=== PATIENT | male | born 1995 | race Caucasian/White ===

== ENCOUNTER → 2016-10-07 14:22 | Emergency (ER) | payer OTHER ==
[~2016-10-07 14:22] MED LIST: Levofloxacin TAB* 500 MG PO ONE; OLANzapine TAB* 10 MG PO ONE; OLANzapine TAB* 5 MG PO ONE
[2016-10-07 15:44] LABS: Hematocrit 47 % (42-52); Hemoglobin 16.6 g/dl (14.0-18.0); Mean Corpuscular HGB Conc 35 g/dl (31-36); Mean Corpuscular Hemoglobin 32 pg (27-31); Mean Corpuscular Volume 91 fL (80-94); Mean Platelet Volume 7 um3 (7.4-10.4); Red Blood Count 5.23 10^6/ul (4.0-5.4); Red Cell Distribution Width 13 % (10.5-15); White Blood Count 5.1 10^3/ul (3.5-10.8)
[2016-10-07 15:54] LABS: Urine Bilirubin Negative (Negative); Urine Glucose Negative (Negative); Urine Nitrite Negative (Negative)
[2016-10-07 15:59] LABS: ALT 14 U/L (7-52); AST 16 U/L (13-39); Albumin 4.3 g/dL (3.2-5.2); Alkaline Phosphatase 43 U/L (34-104); Anion Gap 5 mmol/L (2-11); BUN/Creatinine Ratio 21.3 (8-20); Blood Urea Nitrogen 16 mg/dL (6-24); CO2 Carbon Dioxide 27 mmol/L (22-32); Calcium 9.6 mg/dL (8.6-10.3); Chloride 103 mmol/L (101-111); EGFR Non-African American 129.1 (>60); Globulin 3.1 g/dL (2-4); Glucose 89 mg/dL (70-100); Potassium 3.8 mmol/L (3.5-5.0); Sodium 135 mmol/L (133-145); Total Protein 7.4 g/dL (6.4-8.9)
[2016-10-07 16:04] LABS: Benzodiazepine Urine Screen None Detected (None Detect)
[2016-10-07 16:36] LABS: Acetaminophen < 15 mcg/mL; Alcohol < 10 mg/dL (<10); Salicylate < 2.50 mg/dL (<30)
[2016-10-07 16:47] LABS: TSH (Thyroid Stimulating Horm) 1.64 mcIU/mL (0.34-5.60)
[2016-10-07 16:57] VITALS: BP 125/82
--- NOTE | 2016-10-07 18:24 | ED ---
Psychiatric Complaint - HPI Summary HPI Summary: Patient presents to the ED with CC of feelings of radha starting today. He takes Prozac daily and 1 month ago was increased from 20mg to 30mg. Prior to that he was increased from 10mg to 20mg with no side effects. He notes to impulsivity, feelings of heightened awareness. Denies SI/HI. He states he has a history of impulsive thoughts, but again is adamant about never acting on those feelings. He states he just feels overly excited and is uncomfortable with those feelings. 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 Denies any other health problems. Takes no medications other than the prozac. Denies self harm or previous thoughts of SI/HI. - History Of Current Complaint Chief Complaint: EDMentalHealth Time Seen by Provider: 10/07/16 14:41 Hx Obtained From: Patient Onset/Duration: Sudden Onset Timing: Constant Severity Initially: Moderate Severity Currently: Moderate Character: Manic, Anxious Aggravating Factor(s): Other - increased medication use x 1 month ago Associated Signs And Symptoms: Positive: Negative Related History: Positive For: Prior Psychiatric Issues - Risk Factor(s) Completed Suicide Risk Factors: Male - Allergies/Home Medications Allergies/Adverse Reactions: Allergies Allergy/AdvReac Type Severity Reaction Status Date / Time No Known Allergies Allergy Verified 10/07/16 18:53 Home Medications: Home Medications FLUoxetine CAP* [PROzac CAP*] 30 mg PO DAILY 10/07/16 [History Confirmed ] PMH/Surg Hx/FS Hx/Imm Hx Previously Healthy: Yes Psychiatric History: Denies: Hx Eating Disorder, Hx of Violent Episodes Against Others - Immunization History Hx Pertussis Vaccination: No Immunizations Up to Date: Unable to Obtain/Confirm Infectious Disease History: No Infectious Disease History: Denies: Traveled Outside the [place] in Last 30 Days - Social History Occupation: Student Lives: Alone Alcohol Use: Occasionally Hx Substance Use: Yes Substance Use Type: Reports: Marijuana Hx Tobacco Use: No Smoking Status (MU): Never Smoked Tobacco Review of Systems Constitutional: Negative Eyes: Negative Cardiovascular: Negative Positive: Other - fast HR. Negative: Palpitations, Chest Pain Respiratory: Negative Positive: no symptoms reported, see HPI Musculoskeletal: Negative Skin: Negative Neurological: Negative Positive: Anxious. Negative: Depressed All Other Systems Reviewed And Are Negative: Yes Physical Exam Triage Information Reviewed: Yes Vital Signs On Initial Exam: Initial Vitals Temp Pulse Resp BP Pulse Ox 99.6 F 78 14 121/73 98 10/07/16 14:36 10/07/16 14:36 10/07/16 14:36 10/07/16 14:36 10/07/16 14:36 Vital Signs Reviewed: Yes Appearance: Positive: Well-Appearing, Well-Nourished Skin: Positive: Warm, Skin Color Reflects Adequate Perfusion Head/Face: Positive: Normal Head/Face Inspection Eyes: Positive: EOMI, JANI, Conjunctiva Clear Neck: Positive: Supple, Nontender, No Lymphadenopathy Respiratory/Lung Sounds: Positive: Clear to Auscultation, Breath Sounds Present Cardiovascular: Positive: Normal, RRR, Pulses are Symmetrical in both Upper and Lower Extremities Musculoskeletal: Positive: Strength/ROM Intact Neurological: Positive: Sensory/Motor Intact, Alert, Oriented to Person Place, Time, Speech Normal Psychiatric: Positive: Affect/Mood Appropriate, Anxious. Negative: Depressed AVPU Assessment: Alert - Tristan Coma Scale Coma Scale Total: 15 Diagnostics - Vital Signs Vital Signs Temp Pulse Resp BP Pulse Ox 10/07/16 16:56 99.1 F 67 16 125/82 98 10/07/16 16:30 99.6 F 64 20 117/70 99 10/07/16 14:36 99.6 F 78 14 121/73 98 - Laboratory Lab Results: Lab Results 10/07/16 10/07/16 10/07/16 Range/Units 14:44 14:44 15:37 WBC (3.5-10.8) 10^3/ul RBC (4.0-5.4) 10^6/ul Hgb (14.0-18.0) g/dl Hct (42-52) % MCV (80-94) fL MCH (27-31) pg MCHC (31-36) g/dl RDW (10.5-15) % Plt Count (150-450) 10^3/ul MPV (7.4-10.4) um3 Neut % (Auto) (38-83) % Lymph % (Auto) (25-47) % [place] % (Auto) (1-9) % Eos % (Auto) (0-6) % Baso % (Auto) (0-2) % Absolute Neuts (auto) (1.5-7.7) 10^3/ul Absolute Lymphs (auto) (1.0-4.8) 10^3/ul Absolute Monos (auto) (0-0.8) 10^3/ul Absolute Eos (auto) (0-0.6) 10^3/ul Absolute Basos (auto) (0-0.2) 10^3/ul Absolute Nucleated RBC 10^3/ul Nucleated RBC % Sodium 135 (133-145) mmol/L Potassium 3.8 (3.5-5.0) mmol/L Chloride 103 (101-111) mmol/L Carbon Dioxide 27 (22-32) mmol/L Anion Gap 5 (2-11) mmol/L BUN 16 (6-24) mg/dL Creatinine 0.75 (0.67-1.17) mg/dL Est GFR ( Amer) 166.0 (>60) Est GFR (Non-Af Amer) 129.1 (>60) BUN/Creatinine Ratio 21.3 H (8-20) Glucose 89 (70-100) mg/dL Calcium 9.6 (8.6-10.3) mg/dL Total Bilirubin 0.60 (0.2-1.0) mg/dL AST 16 (13-39) U/L ALT 14 (7-52) U/L Alkaline Phosphatase 43 (34-104) U/L Total Protein 7.4 (6.4-8.9) g/dL Albumin 4.3 (3.2-5.2) g/dL Globulin 3.1 (2-4) g/dL Albumin/Globulin Ratio 1.4 (1-3) TSH 1.64 (0.34-5.60) mcIU/mL Urine Color Yellow Urine Appearance Clear Urine pH 6.0 (5-9) Ur Specific [place] 1.028 (1.010-1.030) Urine Protein Negative (Negative) Urine Ketones Negative (Negative) Urine Blood Negative (Negative) Urine Nitrate Negative (Negative) Urine Bilirubin Negative (Negative) Urine Urobilinogen Negative (Negative) Ur Leukocyte Esterase Negative (Negative) Urine Glucose Negative (Negative) Salicylates < 2.50 (<30) mg/dL Urine Opiates Screen None detected (None Detect) Acetaminophen < 15 mcg/mL Ur Barbiturates Screen None detected (None Detect) Ur Phencyclidine Scrn None detected (None Detect) Ur Amphetamines Screen None detected (None Detect) U Benzodiazepines Scrn None detected (None Detect) Urine Cocaine Screen None detected (None Detect) U Cannabinoids Screen Presumptive positive H (None Detect) Serum Alcohol < 10 (<10) mg/dL 10/07/16 Range/Units 15:37 WBC 5.1 (3.5-10.8) 10^3/ul RBC 5.23 (4.0-5.4) 10^6/ul Hgb 16.6 (14.0-18.0) g/dl Hct 47 (42-52) % MCV 91 (80-94) fL MCH 32 H (27-31) pg MCHC 35 (31-36) g/dl RDW 13 (10.5-15) % Plt Count 302 (150-450) 10^3/ul MPV 7 L (7.4-10.4) um3 Neut % (Auto) 49.4 (38-83) % Lymph % (Auto) 38.3 (25-47) % [place] % (Auto) 7.7 (1-9) % Eos % (Auto) 1.1 (0-6) % Baso % (Auto) 3.5 H (0-2) % Absolute Neuts (auto) 2.5 (1.5-7.7) 10^3/ul Absolute Lymphs (auto) 2.0 (1.0-4.8) 10^3/ul Absolute Monos (auto) 0.4 (0-0.8) 10^3/ul Absolute Eos (auto) 0.1 (0-0.6) 10^3/ul Absolute Basos (auto) 0.2 (0-0.2) 10^3/ul Absolute Nucleated RBC 0.01 10^3/ul Nucleated RBC % 0.2 Sodium (133-145) mmol/L Potassium (3.5-5.0) mmol/L Chloride (101-111) mmol/L Carbon Dioxide (22-32) mmol/L Anion Gap (2-11) mmol/L BUN (6-24) mg/dL Creatinine (0.67-1.17) mg/dL Est GFR ( Amer) (>60) Est GFR (Non-Af Amer) (>60) BUN/Creatinine Ratio (8-20) Glucose (70-100) mg/dL Calcium (8.6-10.3) mg/dL Total Bilirubin (0.2-1.0) mg/dL AST (13-39) U/L ALT (7-52) U/L Alkaline Phosphatase (34-104) U/L Total Protein (6.4-8.9) g/dL Albumin (3.2-5.2) g/dL Globulin (2-4) g/dL Albumin/Globulin Ratio (1-3) TSH (0.34-5.60) mcIU/mL Urine Color Urine Appearance Urine pH (5-9) Ur Specific [place] (1.010-1.030) Urine Protein (Negative) Urine Ketones (Negative) Urine Blood (Negative) Urine Nitrate (Negative) Urine Bilirubin (Negative) Urine Urobilinogen (Negative) Ur Leukocyte Esterase (Negative) Urine Glucose (Negative) Salicylates (<30) mg/dL Urine Opiates Screen (None Detect) Acetaminophen mcg/mL Ur Barbiturates Screen (None Detect) Ur Phencyclidine Scrn (None Detect) Ur Amphetamines Screen (None Detect) U Benzodiazepines Scrn (None Detect) Urine Cocaine Screen (None Detect) U Cannabinoids Screen (None Detect) Serum Alcohol (<10) mg/dL Result Diagrams: 10/07/16 15:37 10/07/16 15:37 Lab Statement: Any lab studies that have been ordered have been reviewed, and results considered in the medical decision making process. Course/Dx - Course Course Of Treatment: Patient is cleared for MHU. Patient is evaluated by MHU and agrees to keep in observation overnight in the flex. Patient given zyprexa 10mg for relief and is prescribed 10mg as needed for insomnia. Dr. Swan ( psychiatry) suggested these parameters and will follow his direction for the patient. They will obtain more records from [place] tomorrow morning and will likely discharge at that time pending more information. - Differential Dx/Clinical Impression Differential Diagnosis/HQI/PQRI: Positive: Anxiety, Bipolar Disorder, Depression , Drug Overdose/Unintentional Provider Diagnosis: Manic behavior Discharge - Discharge Plan Condition: Stable Referrals: Non Staff,Doctor [Primary Care Provider] -
--- NOTE | 2016-10-08 14:36 | CONSULT ---
Consult Consult: Mr. North presented C/O being a bit manic. He was medically cleared on a previous shift and had a MHE. Dr. Combs felt that he was safe for D/C and he was D/C'd in stable condition with a diagnosis of medication reaction.
== END | disposition home or self-care (01) ==
LOC: ED 14:22
DX: F30.9 Manic episode, unspecified (principal)
CPT/HCPCS: 36415; 80053; 80307; 80320; 80329; 81003; 84443; 85025; 99284; A9270-GY; G0480

== ENCOUNTER 2017-04-10 15:12 | Inpatient (IN) | payer OTHER ==
--- OUTSIDE RECORDS SUMMARY | 2017-04-10 15:37 | XMS REPORT ---
:1995 External Reference #:[id number] [facility] Address [address] [address] Phone [phone] Care Team Providers Name Role Phone Lawrence Daley M.D. Care Team Information Software Application Tester Unavailable Payers Type Date Identification Numbers Payment Provider Subscriber Commercial Effective: Policy Number: [id number] [employer] 2017 PayID: [id number] [address] [place] [address] Commercial Policy Number: [id number] [employer] PayID: [id number] [address] [place] [address] Problems Date Description Provider Status Onset: 03/26/2017 Tic disorder Lawrence Daley M.D. Active Social History Type Date Description Comments ETOH Use Occasionally consumes alcohol Smoking Patient has never smoked Recreational Drug Use Denies Drug Use Allergies, Adverse Reactions, Alerts Date Description Reaction Status Severity Comments 03/17/2017 NKDA active Medications Medication Date Status Form Strength Qnty SIG Indications Ordering Provider Topiramate 03/26/ Active Tablets 25mg 60tabs 1 by mouth F95.9 Lawrence Martin twice a Carol Daley day Fluoxetine / Active Capsules 20mg 1 by mouth Unknown HCL 0000 every day Latuda / Active Tablets 20mg As Unknown 0000 directed Vital Signs Date Vital Result Comment 03/26/2017 Height 69 inches 5'9" Weight 169.00 lb Heart Rate 66 /min BP Systolic 118 mmHg BP Diastolic 80 mmHg BMI (Body Mass Index) 25.0 kg/m2 Results Description No Information Procedures Description No Information Plan of Care Future Appointment(s):05/15/2017 10:15 am - Lawrence [facility] at [facility]03/26/2017 - Lawrence Daley M.D.F95.9 Tic disorder , unspecifiedNew Medication:Topiramate 25 mgFollow up:Follow up in 6 weeks.
[2017-04-10 15:54] LABS: Urine Appearance Cloudy; Urine Blood Negative (Negative); Urine Color Yellow; Urine Ketones Negative (Negative); Urine Protein Negative (Negative); Urine Specific Gravity 1.013 (1.010-1.030); Urine Urobilinogen Negative (Negative)
[2017-04-10 16:30] LABS: ABS Basophils 0 10^3/ul (0-0.2); ABS Eosinophils 0 10^3/ul (0-0.6); ABS Lymphocytes 0.8 10^3/ul (1.0-4.8); ABS Monocytes 0.5 10^3/ul (0-0.8); ABS Neutrophils 8.8 10^3/ul (1.5-7.7); ABS Nucleated RBC 0 10^3/ul; Eosinophil % 0.1 % (0-6); Hematocrit 48 % (42-52); Hemoglobin 17.2 g/dl (14.0-18.0); Lymphocyte % 8.2 % (25-47); Mean Corpuscular HGB Conc 36 g/dl (31-36); Mean Corpuscular Hemoglobin 33 pg (27-31); Mean Corpuscular Volume 92 fL (80-94); Mean Platelet Volume 8 um3 (7.4-10.4); Nucleated Red Blood Cells % 0; Platelet Count 284 10^3/ul (150-450); Red Blood Count 5.23 10^6/ul (4.0-5.4); Red Cell Distribution Width 12 % (10.5-15); White Blood Count 10.1 10^3/ul (3.5-10.8)
[2017-04-10 16:55] LABS: EGFR Non-African American 92.6 (>60)
--- NOTE | 2017-04-11 07:23 | ED ---
I, Enedina Campa, scribed for Kenn Barreto MD on 04/10/17 at 2145 . Progress - Progress Note Progress Note: The pt is a sign out from Dr. Chan pending mental health evaluation. - Consult/PCP Time Called: 17:00 Course/Dx - Course Course Of Treatment: Pt stable thru night -- signed out to Dr Stubbs at 7am. - Diagnoses Provider Diagnoses: Elevated BP without diagnosis of hypertension - Provider Notifications Discussed Care Of Patient With: Enoc Time Discussed With Above Provider: 07:00 The documentation as recorded by the Lokesh muhammad Jennifer accurately reflects the service I personally performed and the decisions made by , Kenn Barreto MD.
--- NOTE | 2017-04-11 09:32 | PN ---
ED Flex Patient Progress Note Date of Service: 04/11/17 Subjective: This is a 21 year-old M who is pending disposition after MHE presents to Dr Romero, psychiatrist. observed secondary to depression/anxiety and suicidal thoughts. Patient states he is wondering what is taking so long however he is eating and sleeping. No other complaints. Objective: Vitals: Most recent vital signs documented below. General NAD, Alert and oriented x3. Heart: rrr at 87 bpm Lungs: CTA or with rales, rhonchi, wheezing Laboratory: Current laboratory results documented below. Assessment: pending psych dispo Plan: Pending psychiatric consultation by Dr Romero to determine disposition. will follow up daily. Vital Signs Temp Pulse Resp BP Pulse Ox 99.1 F 87 20 118/71 97 04/11/17 08:27 04/11/17 08:27 04/11/17 08:27 04/11/17 08:27 04/11/17 08:27 Lab Results - Entire Visit 04/10/17 04/10/17 04/10/17 16:15 16:15 15:33 WBC 10.1 RBC 5.23 Hgb 17.2 Hct 48 MCV 92 MCH 33 H MCHC 36 RDW 12 Plt Count 284 MPV 8 Neut % (Auto) 87.1 H Lymph % (Auto) 8.2 L [place] % (Auto) 4.5 Eos % (Auto) 0.1 Baso % (Auto) 0.1 Absolute Neuts (auto) 8.8 H Absolute Lymphs (auto) 0.8 L Absolute Monos (auto) 0.5 Absolute Eos (auto) 0 Absolute Basos (auto) 0 Absolute Nucleated RBC 0 Nucleated RBC % 0 Sodium 137 Potassium 3.9 Chloride 103 Carbon Dioxide 27 Anion Gap 7 BUN 15 Creatinine 1.00 Est GFR ( Amer) 119.1 Est GFR (Non-Af Amer) 92.6 BUN/Creatinine Ratio 15.0 Glucose 124 H Calcium 10.0 Total Bilirubin 0.50 AST 19 ALT 24 Alkaline Phosphatase 43 Total Protein 7.8 Albumin 4.8 Globulin 3.0 Albumin/Globulin Ratio 1.6 TSH 3.52 Urine Color Yellow Urine Appearance Cloudy Urine pH 7.0 Ur Specific [place] 1.013 Urine Protein Negative Urine Ketones Negative Urine Blood Negative Urine Nitrate Negative Urine Bilirubin Negative Urine Urobilinogen Negative Ur Leukocyte Esterase Negative Urine Glucose Negative Salicylates < 2.50 Urine Opiates Screen Acetaminophen < 15 Ur Barbiturates Screen Ur Phencyclidine Scrn Ur Amphetamines Screen U Benzodiazepines Scrn Urine Cocaine Screen U Cannabinoids Screen Serum Alcohol < 10 04/10/17 15:33 WBC RBC Hgb Hct MCV MCH MCHC RDW Plt Count MPV Neut % (Auto) Lymph % (Auto) [place] % (Auto) Eos % (Auto) Baso % (Auto) Absolute Neuts (auto) Absolute Lymphs (auto) Absolute Monos (auto) Absolute Eos (auto) Absolute Basos (auto) Absolute Nucleated RBC Nucleated RBC % Sodium Potassium Chloride Carbon Dioxide Anion Gap BUN Creatinine Est GFR ( Amer) Est GFR (Non-Af Amer) BUN/Creatinine Ratio Glucose Calcium Total Bilirubin AST ALT Alkaline Phosphatase Total Protein Albumin Globulin Albumin/Globulin Ratio TSH Urine Color Urine Appearance Urine pH Ur Specific [place] Urine Protein Urine Ketones Urine Blood Urine Nitrate Urine Bilirubin Urine Urobilinogen Ur Leukocyte Esterase Urine Glucose Salicylates Urine Opiates Screen None detected Acetaminophen Ur Barbiturates Screen None detected Ur Phencyclidine Scrn None detected Ur Amphetamines Screen None detected U Benzodiazepines Scrn None detected Urine Cocaine Screen None detected U Cannabinoids Screen None detected Serum Alcohol
[2017-04-11] MEDS ORDERED: Al Hydrox/Mg Hydrox/Simet LIQ* 30 ML UDC PO PRN (10:28)
[2017-04-11] MEDS ORDERED: Acetaminophen TAB* 325 MG PO PRN (10:28)
--- NOTE | 2017-04-11 12:45 | ADMNOTE ---
History - Objective HPI: Psychiatric Attending History and Physical NAME: Siva North : 1995 AGE: 21 PROVIDER: Jame Mackey DATE OF ADMISSION: 04/10/2017 JUSTIFICATION FOR ADMISSION: Patient brought to ED for evaluation of his mental status after a staff member in the [facility] department called police after having a discussion with patient during which she perceived that patient made threatening comment about a deep submergence vehicle crewmember. The staff at [facility] [employer] could not be reached for full detaiils. Patient is admitted for 24 hour supervision in order to assess whether he is danger to self or others CHIEF COMPLAINT: "I'm not here because I'm a threat but because people often don't understand or misunderstand me" HISTORY OF THE PRESENT ILLNESS: History gathered solely from patient who is judged to be an accurate historian. The history could very well change based on information gathered from [facility] staff, family members, or treatment providers. 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 patient has history of depression and Autism both diagnosed in July of 2016 when he presented to [facility] outpatient clinic for treatment of depressive symptoms (loss of interest, low self worth, lethargy). patient has no history or suicidal or homicidal ideation, intention , plan or attempt. Patient was started on Prozac in July 2016 which was titrated up to 30 mg over two month period. one month after increase to 30 mg he developed first time manic symptoms including racing thoughts, insomnia, psychomotor acceleration and anxiety. He was see in [facility] and manic symptoms remitted with a single dose of Zyprexa 10 mg. Latuda was added and titrated up to 40 mg which patient took for about 6 months. It was discontinued a month ago according to patient. patient denies recent history of manic symptoms. he does report that he has been more depressed recently and believes that his medication could be adjusted. Of note patient reports that he has always had impaired social skills, attentional difficulties, been misunderstood, had impulse control probelms, had few friends, tended to be more of a loner. He often feels misunderstood as he has tendency to say things without considering the consequences. Patient endorses being happy at [employer], intending to complete his PHD (has 4 more years), admits he has very few friends but is content with this. He does have a love interest that he considers his girlfriend and with whom he is sexually active. Patient reports that he has a 4.01 grade point average out of 4.0. he has been seeing a therapist weekly at the outpatient clinic since summer. Stressors: September 2017 he revealed depression to his mathematics advisor. Subsequently told by dept chair that he would need to find new advisor and would not receive recommendation for a rodolfo. law suit initiated by patient based on breach of rights/discrimination. Patient reports that he has been angry and felt slighted by his advisor and the chair of department but denies having any homicidal ideation expressed or unexpresssed toward anyone. He also denies ever making any statements about wanting to use gun to harm anyone. He reports that he after the discussion with chair of math occurred, he was brought to [employer] office where a counselor was arranged for him to speak with. Counselor asked him if he had HI or SI at that time to which he answered "no". 4 weeks ago, after [employer] shooting, he made comment to his counselor about being upset that people with mental illness would no longer be able to purchase weapons. He denies ever having intention or thought to buy gun. he reports that he has never touched, used, owned or tried to procure a gun and nor does he desire to. several days ago he heard from his sprinkler irrigation equipment mechanic that he had won the law suit. He reports that he went over to the math department in order to "gloat" to the service secretary about his having won. He denies that he was agitated or explosive. he does admit feeling vindicated. He also admits that he admonished the [employer] service secretary for having called a therapist to talk to him that prior September. He states that he told her that it hurt his feelings that he had been questioned about being suicidal or homicidal just because he had revealed having depression to a deep submergence vehicle crewmember. PAST PSYCHIATRIC HISTORY: as above endorses the following symptoms consistent with ADHD combined type: easily distracted, restelss and fidgety, easily bored, disroganized, misplaces and loses things easily, trouble completing tasks and projects, either overfocused or underfocused, has trouble sustaining self on things unless he has high level of interest,always had sloppy handwriting, inpatient, tends to interrupt. ability to focus appears to be improving with time. SUBSTANCE ABUSE HISTORY: marijuana use over the summer when back in [place] because "it is legal there" PAST MEDICAL HISTORY: seasonal allergies history of Vocal tics (grunting) since age 6. only recently diagnosed as having "vocal Tic Disorder" (used to repeat phrases he heard on tv now only grunts). saw Neurologist for first time one week ago here in [place] and started on Topamax 25 mg BID CURRENT MEDICATIONS: Topamax 25 mg BID Prozac 20 mg QD ALLERGIES: NKDA FAMILY PSYCHIATRIC HISTORY: mother with bipolar disorder and PTSD FAMILY/PSYCHOSOCIAL HISTORY: Only child born to bermudian mother and [place] Father. Father is a state attorney. Mother works in a assisted home. grew up in [facility]. no history of legal probelms arrests or incarceration. denies history of physical or sexual trauma. identifies as heterosexual has girlfriend with whom he is sexually active. a few friends at college REVIEW OF SYSTEMS: all noncontributory per hospitalist H and P performed on 02/2017 PHYSICAL EXAMINATION: UNREMARKABLE (NORMAL PHYSICAL EXAMINATION) per hospitalist 's H and P performed on 04/10/2017 MENTAL STATUS EXAMINATION: Well developed and nourished 21 year old male of mixed and descent. no dysmorphic features noted. Patient was fairly well related and made good eye contact. speech normal Rate and Volume. fluent and spontaneous. normal psychomotor behavior Thought process is organized and goal directed. no evidence of tangentiality, irrelevant or illogic constructs. Mood self described as more depressed than when he first started the prozac. affect: odd, restricted range, some flattening TC: denies current or past VH,AH, delusions, paranoia. reports always had difficulty getting to sleep at night but that since starting prozac he now falls asleep quickly and sleeps from 12 mn to 8 am daily. Denies that he has ever had homicidal fantasy, ideation, intention, plan or attempt. also denies that he ever had actual intention of purchasing gun. no interest in guns no access to them. knows people in [place] who used them but his family never did. reports feeling angry and hurt by chair and former advisor and feels proud to have won his suit. reports that he only stated that he would hold Chair accountable for his actions. adamantly denies ever making any threatening statement to service secretary. also denies having any communications with [facility] faculty members since September when he had the initial meeting with the branch or department chief librarian. ie. reprots that when he would see them from time to time he would look the other way denies stalking behavior or contacting them by phone as well. Patient is alert and oriented in all spheres. insight: intact judgment: prone to be poor seoncdary to some impairments in impulse control, also has qualitative impairments in social skills leading to poor social judgment. LABORATORY DATA: Laboratory Last Values WBC 10.1 10^3/ul (3.5-10.8) 04/10/17 16:15 RBC 5.23 10^6/ul (4.0-5.4) 04/10/17 16:15 Hgb 17.2 g/dl (14.0-18.0) 04/10/17 16:15 Hct 48 % (42-52) 04/10/17 16:15 MCV 92 fL (80-94) 04/10/17 16:15 MCH 33 pg (27-31) H 04/10/17 16:15 MCHC 36 g/dl (31-36) 04/10/17 16:15 RDW 12 % (10.5-15) 04/10/17 16:15 Plt Count 284 10^3/ul (150-450) 04/10/17 16:15 MPV 8 um3 (7.4-10.4) 04/10/17 16:15 Neut % (Auto) 87.1 % (38-83) H 04/10/17 16:15 Lymph % (Auto) 8.2 % (25-47) L 04/10/17 16:15 [place] % (Auto) 4.5 % (0-7) 04/10/17 16:15 Eos % (Auto) 0.1 % (0-6) 04/10/17 16:15 Baso % (Auto) 0.1 % (0-2) 04/10/17 16:15 Absolute Neuts (auto) 8.8 10^3/ul (1.5-7.7) H 04/10/17 16:15 Absolute Lymphs (auto) 0.8 10^3/ul (1.0-4.8) L 04/10/17 16:15 Absolute Monos (auto) 0.5 10^3/ul (0-0.8) 04/10/17 16:15 Absolute Eos (auto) 0 10^3/ul (0-0.6) 04/10/17 16:15 Absolute Basos (auto) 0 10^3/ul (0-0.2) 04/10/17 16:15 Absolute Nucleated RBC 0 10^3/ul 04/10/17 16:15 Nucleated RBC % 0 04/10/17 16:15 Sodium 137 mmol/L (133-145) 04/10/17 16:15 Potassium 3.9 mmol/L (3.5-5.0) 04/10/17 16:15 Chloride 103 mmol/L (101-111) 04/10/17 16:15 Carbon Dioxide 27 mmol/L (22-32) 04/10/17 16:15 Anion Gap 7 mmol/L (2-11) 04/10/17 16:15 BUN 15 mg/dL (6-24) 04/10/17 16:15 Creatinine 1.00 mg/dL (0.67-1.17) 04/10/17 16:15 Est GFR ( Amer) 119.1 (>60) 04/10/17 16:15 Est GFR (Non-Af Amer) 92.6 (>60) 04/10/17 16:15 BUN/Creatinine Ratio 15.0 (8-20) 04/10/17 16:15 Glucose 124 mg/dL (70-100) H 04/10/17 16:15 Calcium 10.0 mg/dL (8.6-10.3) 04/10/17 16:15 Total Bilirubin 0.50 mg/dL (0.2-1.0) 04/10/17 16:15 AST 19 U/L (13-39) 04/10/17 16:15 ALT 24 U/L (7-52) 04/10/17 16:15 Alkaline Phosphatase 43 U/L (34-104) 04/10/17 16:15 Total Protein 7.8 g/dL (6.4-8.9) 04/10/17 16:15 Albumin 4.8 g/dL (3.2-5.2) 04/10/17 16:15 Globulin 3.0 g/dL (2-4) 04/10/17 16:15 Albumin/Globulin Ratio 1.6 (1-3) 04/10/17 16:15 TSH 3.52 mcIU/mL (0.34-5.60) 04/10/17 16:15 Urine Color Yellow 04/10/17 15:33 Urine Appearance Cloudy 04/10/17 15:33 Urine pH 7.0 (5-9) 04/10/17 15:33 Ur Specific Colon 1.013 (1.010-1.030) 04/10/17 15:33 Urine Protein Negative (Negative) 04/10/17 15:33 Urine Ketones Negative (Negative) 04/10/17 15:33 Urine Blood Negative (Negative) 04/10/17 15:33 Urine Nitrate Negative (Negative) 04/10/17 15:33 Urine Bilirubin Negative (Negative) 04/10/17 15:33 Urine Urobilinogen Negative (Negative) 04/10/17 15:33 Ur Leukocyte Esterase Negative (Negative) 04/10/17 15:33 Urine Glucose Negative (Negative) 04/10/17 15:33 Salicylates < 2.50 mg/dL (<30) 04/10/17 16:15 Urine Opiates Screen None detected (None Detect) 04/10/17 15:33 Acetaminophen < 15 mcg/mL 04/10/17 16:15 Ur Barbiturates Screen None detected (None Detect) 04/10/17 15:33 Ur Phencyclidine Scrn None detected (None Detect) 04/10/17 15:33 Ur Amphetamines Screen None detected (None Detect) 04/10/17 15:33 U Benzodiazepines Scrn None detected (None Detect) 04/10/17 15:33 Urine Cocaine Screen None detected (None Detect) 04/10/17 15:33 U Cannabinoids Screen None detected (None Detect) 04/10/17 15:33 Serum Alcohol < 10 mg/dL (<10) 04/10/17 16:15 IMPRESSION: 21 yo with longstanding impairements in social skills, restricted range of interests, odd affect, attentional difficulties history of depressive symptoms, and likely SSRI induced switch into radha which resolved with zyprexa and lowering of SSRI medicaiton induced radha and family history of bipolarity greatly increase risk that patient has bipolar illness. Treatment with SSRI alone is risky. ADdition of neuroleptic is prudent. adding Zyprexa ( which helped in past) would protect him from radha and with prozac is indicated for bipolar depression. alternatively, one could add abilify. Patient does not feel Latuda helped. there is no indication from patient's history of mental status that he has ever been homicidal or suicidal. There is also no indication that he is presently danger to self or others. Of course, this is all based on patient as the informant. I would want to get collateral data from psychiatrist and therapist working with patient. I would also like to find out the nature of the encounter which took place between patient and service secretary of the [employer] department on the day prior to admission which resulted in service secretary calling Police. patient's undiagnosed ADHD which is common in patients with developmental disorders should be treated to enhance impulse control and affective regulation which may be at least a partial determinant of why patient was sent to the hospital in the first place. DIAGNOSES: depressive episode unspecified rule out unipolar versus bipolar illness rule out autism spectrum disorder versus schizoid personality disorder ADHD combined type Vocal Tic Disorder PLAN: admit to unit on q 15 min observation involuntary status for potential danger to self/others prozac 20 mg daily Topamax 25 mg BID add abilify 5 mg daily if patient gives consent d/c Latuda d/c plan is back to college will need to speak with providers to increase data base patient gave permission for me to call his father. Plan - Treatment Plan Medications: Current Medications Acetaminophen (Tylenol Tab*) 650 mg PO Q4H PRN PRN Reason: for pain; or Temp >101 F Al Hydrox/Mg Hydrox/Simethicone (Maalox Plus*) 30 ml PO Q4H PRN PRN Reason: INDIGESTION Fluoxetine HCl (Prozac Cap*) 20 mg PO DAILY [facility] Lurasidone HCl (Latuda) 40 mg PO 1700 K[facility]Y Topiramate (Topamax(*)) 25 mg PO BID [facility]
[2017-04-11] MEDS: Topiramate TAB(*) 25 MG PO SCH ×2 (13:04→21:44)
[2017-04-11] MEDS: FLUoxetine CAP* 20 MG PO SCH (13:04)
[2017-04-11] MEDS ORDERED: Lurasidone(*) 40 MG TAB PO SCH (17:00)
--- NOTE | 2017-04-11 18:48 | ED ---
Hodan Nguyen Julia, scribed for David Stubbs MD on 04/11/17 at 1157 . Progress - Progress Note Progress Note: This patient is signed out from Dr. Barreto at shift change. He was seen by the [facility] and they felt that he should be admitted 939 for safety concerns as he has had a great deal of strife with a professor and has been threatening him. Given his psychiatric history it was thought to be safest to observe him. He is admitted in stable condition with a diagnosis of pyschosis. Course/Dx - Diagnoses Provider Diagnoses: Elevated BP without diagnosis of hypertension - Provider Notifications Time Discussed With Above Provider: 07:00 The documentation as recorded by the michaelibHodan valentine Julia accurately reflects the service I personally performed and the decisions made by me, David Stubbs MD.
[2017-04-12] MEDS: FLUoxetine CAP* 20 MG PO SCH (08:57)
[2017-04-12] MEDS: Topiramate TAB(*) 25 MG PO SCH ×2 (08:57→20:36)
[2017-04-13] MEDS: Topiramate TAB(*) 25 MG PO SCH ×2 (08:20→20:17)
[2017-04-13] MEDS: FLUoxetine CAP* 20 MG PO SCH (08:20)
--- NOTE | 2017-04-13 18:08 | PN ---
Subjective - Subjective Date of Service: 04/13/17 Subjective: Siva endorses anxiety related to returning to campus, he worries he will be perceived "as a threat." He wants to defer med changes until he restart seeing his outpatient psychiatrist. He denies SI/HI and he contracts for safety. He denies side effects from prescribed Topiramate and Fluoxetine. Per staff, he is adherent to unit's routines. Objective - Appearance Appearance: Healthy Appearing Dysmorphic Features: No Hygiene: Normal Grooming: Well Kept - Behavior Psychomotor Activities: Normal Exhibits Abnormal Movement: No - Attitude and Relatedness Attitude and Relatedness: Superficially Cooperative Eye Contact: Fair - Speech Quality: Unpressured Latencies: Normal Quantity: Appropriate - Mood Patient's Decription of Mood: "Anxious" - Affect Observed Affect: Constricted Affect Consistent with: Dysphoria - Thought Process Patient's Thought Process: Coherent, Goal Directed Thought Content: No Passive Wish, No Suicidal Planning, No Homicidal Ideation, No Paranoid Ideation - Sensorium Experiencing Hallucinations: No, Sensorium is Clear - Level of Consciousness Level of Consciousness: Alert Orientation: Yes Intact - Impulse Control Impulse Control: Intact - Insight and Judgement Insight and Judgement: Poor - Group Participation Particating in Group Activities: Yes - Medication Management Medication Management Adherence: Yes Assessment - Assessment Merits Inpatient Hospitalization: For Ongoing Evaluation, Consolidate Improvements, For Discharge Planning Inpatient DSM-V Dx: F84.5 Clinical Impression: Safe on checks, in intact behavioral control, denying SI/HI, tolerating trials of Topiramate and Fluoxetine. He needs continued admission for consolidation. Plan - Plan Treatment Plan: Name: SIVA VILA Birthdate: 1995 [id number] Continued Medication Management: Continue Outpt Medication Medications: Current Medications Acetaminophen (Tylenol Tab*) 650 mg PO Q4H PRN PRN Reason: for pain; or Temp >101 F Al Hydrox/Mg Hydrox/Simethicone (Maalox Plus*) 30 ml PO Q4H PRN PRN Reason: INDIGESTION Fluoxetine HCl (Prozac Cap*) 20 mg PO DAILY [facility] Last Admin: 04/13/17 08:20 Dose: 20 mg Topiramate (Topamax(*)) 25 mg PO BID [facility] Last Admin: 04/13/17 08:20 Dose: 25 mg - Discharge Plan Discharge Plan: Outpatient Follow Up Outpatient Program: Counseling/Psych Services at [place]
[2017-04-14] MEDS: FLUoxetine CAP* 20 MG PO SCH (08:26)
[2017-04-14] MEDS: Topiramate TAB(*) 25 MG PO SCH ×2 (08:26→21:05)
--- NOTE | 2017-04-14 13:01 | PN ---
Subjective - Subjective Date of Service: 04/14/17 Service Type: 94899 Hosp care 15 min low complexity Subjective: Siva is seen today in coverage for Dr. Mackey. He continues to deny SI or HI and feels like the woman who called the [facility] police on him had a "conflict of interest" in doing so, as she was one of the members of the [employer] named in his official complaint to the Office of Civil Rights within the Department of Education. "I just went over to gloat about winning my lawsuit against them. I never said anything about hurting anyone." He endorses frustration that he often communicates in ways that others misconstrue and is upset that the [employer] had the power to involuntarily hospitalize him over the weekend. He is tolerating medications well and describes his mood as "good." Objective - Appearance Appearance: Well Developed/Nourished Dysmorphic Features: No Hygiene: Normal Grooming: Well Kept - Behavior Psychomotor Activities: Normal Exhibits Abnormal Movement: No - Attitude and Relatedness Attitude and Relatedness: Cooperative Eye Contact: Good - Speech Quality: Unpressured Latencies: Normal Quantity: Appropriate - Mood Patient's Decription of Mood: "Good" - Affect Observed Affect: Good Affect Consistent with: Euthymia - Thought Process Patient's Thought Process: Coherent Thought Content: No Passive Wish, No Suicidal Planning, No Homicidal Ideation, No Paranoid Ideation - Sensorium Experiencing Hallucinations: No, Sensorium is Clear Type of Hallucinations: Visual: No, Auditory: No, Command: No - Level of Consciousness Level of Consciousness: Alert Orientation: Yes Intact, Yes Orientated to Time, Yes Orientated to Place, Yes Orientated to Person - Impulse Control Impulse Control: Tenuous - Insight and Judgement Insight and Judgement: Fair - Group Participation Particating in Group Activities: Yes - Medication Management Medication Management Adherence: Yes Assessment - Assessment Merits Inpatient Hospitalization: For Ongoing Evaluation, Pending Safe DC Plan Inpatient DSM-V Dx: F84.5 Clinical Impression: 21 y.o. 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 This was somewhat substantiated by his therapist at [facility], Jorge Clayton, who reported that Siva has spoken in therapy about purchasing a firearm. Plan - Plan Treatment Plan: Name: SIVA VILA Birthdate: 1995 [id number] The patient denies SI or HI and is tolerating fluoxetine and topiramate well. He wishes to be discharged today to follow up with Ms. Clayton back at [facility]. We await further collateral from the school to determine whether he is safe to return to campus. Will file a SAFE Act notification. Perhaps discharge tomorrow (04/15). Continued Medication Management: Continue Outpt Medication Medications: Current Medications Acetaminophen (Tylenol Tab*) 650 mg PO Q4H PRN PRN Reason: for pain; or Temp >101 F Al Hydrox/Mg Hydrox/Simethicone (Maalox Plus*) 30 ml PO Q4H PRN PRN Reason: INDIGESTION Fluoxetine HCl (Prozac Cap*) 20 mg PO DAILY [facility] Last Admin: 04/14/17 08:26 Dose: 20 mg Topiramate (Topamax(*)) 25 mg PO BID [facility] Last Admin: 04/14/17 08:26 Dose: 25 mg - Discharge Plan Discharge Plan: Inpatient Hospitalization
[2017-04-15] MEDS: FLUoxetine CAP* 20 MG PO SCH (08:32)
[2017-04-15] MEDS: Topiramate TAB(*) 25 MG PO SCH ×2 (08:32→20:08)
--- NOTE | 2017-04-15 16:43 | PN ---
Subjective - Subjective Subjective: PSYCHIATRIC ATTENDING PROGRESS NOTE: phone contact with patient's father Duran North. Mr. North heard from son by email that he was being admitted last , on friday emailed father that he was being held over the weekend. friday emailed father again. father has no concerns that son was ever danger to self or others. When asked if he has seen change in son's behavior over the past 18 months he reported "no". frequency of their contact is by phone once every 2 to 3 weeks. father did relate that over the summer he did come home to [place] (was on prozac at this time which he had been started on at [facility] in july or august 2016). 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 shared that patient's mother stays up all night, sleeps till noon and works evenings. describes his as "mentally ill". he and cohabitate but have no communication for past couple of years describes her as being "opinionated and easily upset and angered". thanked me for evaluating son and requested I communicate my impression and recommendations to the psychiatrist who would be following up with Jeronimo at [facility], which I assured him I would. Spoke with Jorge Clayton patient's therapist at [facility]. pertinent facts related are that : she has been treating jeronimo on a weekly basis for past year. that he has been informally diagnosed as autism spectrum by psychiatrist at the clinic. she confirmed that jeronimo had depression was started on prozac over last summer which helped. then became manic. during radha, he was delusional believing that the video game he was playing was actually being played out in real life. she was concerned at that time about his potential to be violent in real life as she was delusional and made some violent statements about using firearms in his real life video game. The psychosis remitted rapidly after being seen in emergency room and treated with Zyprexa and so did the violent fantasies mentioned previously. After the [employer] shootings during a session, Jeronimo made statements about wanting to buy a gun before his right to buy one was removed. He then joked that his fantasy after buying one was to send a picture of the gun with "for John" inscribed on it and send it to him to make him frightened. Per counselor, this was only hypothetical, that patient confirmed that he never thought of seriously carrying it out, but that it was only a thought which helped neutralize the anger which he felt with regard to the disscrimination which he had felt by the [employer] department issue last September. When examined further, counselor found out that patient denied intention or wish to harm anyone and in fact had made those statements more for the effect and because he tends to be impulsive. never had any intent or plan. furthermore, he also talked of revenge fantasies but never actually had any intention or plan to carry them out. to the contrary, his avoidance of the chair of the department and his exadvisor attests to his not being preoccupied with revenge. Report from nursing over weekend reveal that patient had no behavioral difficulties. He was cooperative, compliant with medication and attended groups as requested of him. no affective dyscontrol or loss of impulse control or exploisve behaviors exhibited since his admission last week. I spoke in detail with patient about my plan to have him complete MMPI today to better delineate diagnositic issues. also shared that I feel he has ADHD and Bipolar disorder and that the bipolar disorder needs to be addressed by adding depakote and/or abililfy. He agreed to start ABilify 5 mg daily and to follow up with [facility] psychiatrist for further medication titration. I advised stopping prozac but patient declined to do so at this time. He will speak with his [facility] psychiatrist about further medications adjustments after discharge. He ageed to follow up with with weekly therapy visits with his therapist. we talked about symptoms of hypomania and ADHD as well as the social deficits present in Autism spectrum disorder. I pointed out that his tendency to be too familiar with people, to share this thoughts too readily , to fail to filter what he is thinking, to blurt out thoughts before he has carefully considered what he is about to share and who he is sharing it with, his tendency to have inflated sense of self and to be grandiose are likely related to an overlap of autism spectrum, bipolar disorder, and ADHD. the latter two of which he meets criteria for in my opinion. Patient gave informed consent to complete MMPI and start on ABilify for treatment of bipolar disorder unspecified (likely type I) Impression: bipolar unspecified ADHD combined type rule out autistic disorder Plan: prozac 20 mg daily start Abilify 5 mg qhs for treatment of bipolar disorder topamax 25 mg bid per neurologist d/c in am f/u with therapist and psychiatrist at [facility] psychological testing to rule out autism spectrum disorder recommended Assessment - Assessment Inpatient DSM-V Dx: F84.5
[2017-04-15] MEDS ORDERED: ARIPiprazole TAB* 5 MG PO SCH (21:00)
[2017-04-16 07:37] VITALS: BP 119/70
[2017-04-16] MEDS: FLUoxetine CAP* 20 MG PO SCH (07:51)
[2017-04-16] MEDS: Topiramate TAB(*) 25 MG PO SCH (07:52)
--- NOTE | 2017-04-16 12:02 | DS ---
Treatment Course & Assessment Inpatient DSM-V Dx: F84.5 Discharge Planning - Discharge Planning Discharge Planning: Prescriptions provided for discharge [] Yes [] No Follow up care details as per social work arrangements. Patient response to discharge plan: [] eager for discharge [] agreeable with discharge plan [] ambivalent about discharge [] disagrees with discharge today
--- NOTE | 2017-04-16 16:08 | CONS ---
PSYCHOLOGICAL REPORT: DATE OF CONSULTATION: 04/16/17 REASON FOR REFERRAL: Siva was referred for personality testing in order to help clarify diagnostic concerns; specifically does Siva experience bipolar disorder, attention deficit and hyperactivity disorder, and/or autistic disorder. TEST ADMINISTERED: Siva completed the [place] Multiphasic Personality Inventory-2 (MMPI-2). Unfortunately, he was not given feedback secondary to timing of discharge and completion of testing. 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 Apparently this was made in the context of having described experienced depression in the past with the professor then severing the relationship with Siva. Siva had apparently successfully appealed this decision and had returned to the mathematics department to "gloat" about the finding. He had alluded to purchasing a pistol and then inscribing the professor's name as a means of intimidation. Siva denied experiencing any homicidal ideation and in fact tends to avoid contact with his professor. Review of Dr. Mackey's notes reveal some contact with Siva's father who expressed some historical concerns of possible autism disorder. However, he apparently also experienced a manic episode where he experienced some delusional thoughts in the context of over-generalizing experienced with a video game. This apparent psychotic break quickly resolved and may have been secondary to initiation of SSRI use for depression. Siva apparently carries a 4.01 average in the graduate school mathematics department and describes typically being a loner socially. Siva remained rather socially withdrawn while here, although he did attend unit programming consistently. This typewriters functional tester did see Siva in the context of cognitive behavioral group psychotherapy on 2 occasions. Siva did not spontaneously participate in discussion and was unresponsive to prompts to engage. TEST RESULTS: Siva provides a valid protocol on this administration of the MMPI- 2, although he does elevate all three emotional duress scales to minimal fashion. T scores here are between 66 and 75. On clinical indices, he has minimal elevations on the paranoia and schizophrenia scales (T = 72 and 68 respectively). He does not elevate the depression scale nor does he elevate the hypomania scale, which both were assessed near a T score of 50. His social introversion scale was also subclinical (T = 60). IMPRESSION AND RECOMMENDATIONS: Persons who score in a similar fashion in the MMPI- 2 are thought to be endorsing some difficulties in the interpersonal sphere of functioning where they might feel somewhat suspicious and hostile towards certain persons and who are endorsing feelings of alienation from significant social support. His score on the social introversion scale is felt to be a positive prognostic indicator as it is not elevated, meaning that he is interested in interaction with others and does not prefer social isolation. Siva impresses as having positive insights regarding human nature and has done very well academically at [employer]. His performance there would seem to contraindicate concerns regarding the psychotic range disturbance, with possible bipolar 1 difficulties still a possibility despite his testing results. Continuing efforts should assess for difficulties with any recurrent bipolar 1 type events and further explore possible autism spectrum diagnosis. Testing results would support further examination of the latter, although it sounds clear from reviewing his history that he did experience psychotic disturbance in recent history. However, this appears to have resolved rather quickly which impresses as being somewhat unusual. Continuing evaluation appears to be indicated as current testing does not seem to resolve this issue satisfactorily. [id number] #: [id number] ELIAZAR
--- NOTE | 2017-04-17 19:25 | ED ---
Mey Nguyen Thomas, scribed for Darrin Chan MD on 04/10/17 at 1623 . Psychiatric Complaint - HPI Summary HPI Summary: The patient is a 21 year old male brought to the emergency department for a mental health evaluation. He is on Prozac and Topamax. He is here to be cleared medically. He is alert and frustrated. He is cooperative. - History Of Current Complaint Chief Complaint: EDMentalHealth Hx Obtained From: Patient Onset/Duration: Still Present Timing: Constant Severity Currently: Moderate Character: Angry Aggravating Factor(s): Other - Unknown Alleviating Factor(s): Other - Unknown Related History: Positive For: Prior Psychiatric Issues Recent Stressor(s): Unknowwn - Allergies/Home Medications Allergies/Adverse Reactions: Allergies Allergy/AdvReac Type Severity Reaction Status Date / Time No Known Allergies Allergy Verified 10/07/16 18:53 PMH/Surg Hx/FS Hx/Imm Hx Opthamlomology History: Denies: Hx Legally Blind EENT History: Denies: Hx Deafness Psychiatric History: Denies: Hx Eating Disorder, Hx of Violent Episodes Against Others Infectious Disease History: No Infectious Disease History: Denies: Traveled Outside the [place] in Last 30 Days - Family History Known Family History: Negative: Respiratory Disease - Social History Alcohol Use: Occasionally Hx Substance Use: Yes Substance Use Type: Reports: Marijuana Substance Use Comment - Amount & Last Used: occ Hx Tobacco Use: No Smoking Status (MU): Never Smoked Tobacco Review of Systems Negative: Fever Positive: Other - Brought here for mental health evaluation All Other Systems Reviewed And Are Negative: Yes Physical Exam - Summary Physical Exam Summary: General: well-appearing, no pain distress Skin: warm, color reflects adequate perfusion, dry Head: normal Eyes: EOMI, JANI ENT: normal Neck: supple, nontender Respiratory: CTA, breath sounds present Cardiovascular: RRR Abdomen: soft, nontender Bowel: present Musculoskeletal: normal, strength/ROM intact Neurological: normal, sensory/motor intact, A&O x3 Psychological: affect/mood appropriate Triage Information Reviewed: Yes Vital Signs On Initial Exam: Initial Vitals Temp Pulse Resp BP Pulse Ox 97.9 F 70 18 131/89 99 04/10/17 15:36 04/10/17 15:36 04/10/17 15:36 04/10/17 15:36 04/10/17 15:36 Vital Signs Reviewed: Yes Diagnostics - Vital Signs Vital Signs Temp Pulse Resp BP Pulse Ox 04/10/17 15:36 97.9 F 70 18 131/89 99 - Laboratory Lab Results: Lab Results 04/10/17 Range/Units 15:33 Urine Color Yellow Urine Appearance Cloudy Urine pH 7.0 (5-9) Ur Specific Daphne 1.013 (1.010-1.030) Urine Protein Negative (Negative) Urine Ketones Negative (Negative) Urine Blood Negative (Negative) Urine Nitrate Negative (Negative) Urine Bilirubin Negative (Negative) Urine Urobilinogen Negative (Negative) Ur Leukocyte Esterase Negative (Negative) Urine Glucose Negative (Negative) Result Diagrams: 04/10/17 16:15 04/10/17 16:15 Lab Statement: Any lab studies that have been ordered have been reviewed, and results considered in the medical decision making process. Course/Dx - Course Course Of Treatment: Medications reviewed. BP noted and patient urged follow up with PMD. - Differential Dx/Clinical Impression Provider Diagnosis: Elevated BP without diagnosis of hypertension Discharge - Discharge Plan Condition: Improved Disposition: PSYCHIATRIC FACILITY-[facility] [place] The documentation as recorded by the Mey muhammad Thomas accurately reflects the service I personally performed and the decisions made by me, Darrin Chan MD.
== END 2017-04-16 10:30 | disposition home or self-care (01) | DRG 885 ==
LOC: ED 15:12 → BSU 04-11 11:49
PROVIDERS: ADMIT Psychiatry & Neurology Psychiatry; ATTEND Psychiatry & Neurology Psychiatry
DX: F84.5 Asperger's syndrome (principal); F95.2 Tourette's disorder; F31.9 Bipolar disorder, unspecified; F90.2 Attention-deficit hyperactivity disorder, combined type; J30.2 Other seasonal allergic rhinitis; Z79.899 Other long term (current) drug therapy; Z81.8 Family history of other mental and behavioral disorders
CPT/HCPCS: 36415; 80053; 80061; 80307; 80320; 80329; 81003; 83036; 84443; 85025; 96102; 99222; 99231; 99238; 99283; A9270-GY; G0480